=== PATIENT | female | born 1995 | race Caucasian/White ===

== ENCOUNTER 2023-05-13 07:22 | Inpatient (IN) | payer BC ==
[2023-05-13] MEDS ORDERED: Bupivacaine 0.25% HCL 30 ML VIAL ONE (08:00)
[2023-05-13] MEDS ORDERED: Misoprostol 200 MCG TAB PR PRN (09:19)
[2023-05-13] MEDS ORDERED: hydrALAZINE 20 MG/ML VIAL SLOW IVP PRN ×2 (09:19→22:43)
[2023-05-13] MEDS ORDERED: Ondansetron PF 4 MG/2 ML Vial IVP PRN ×2 (09:19→13:52)
[2023-05-13] MEDS ORDERED: Ibuprofen 800 MG TAB PO PRN (09:19)
[2023-05-13] MEDS ORDERED: Tranexamic Acid 1,000 MG/10 ML VIAL IVP PRN (09:19)
[2023-05-13] MEDS ORDERED: Promethazine HCl 25 MG/ML VIAL IM PRN ×2 (09:19→13:52)
[2023-05-13] MEDS ORDERED: Methylergonovine 0.2 MG/ML VIAL IM PRN (09:19)
[2023-05-13] MEDS ORDERED: Lidocaine 1% (PF) 30 ML VIAL SC PRN (09:19)
[2023-05-13] MEDS ORDERED: Diphenoxylate HCl/Atropine Tablet PO PRN ×2 (09:19)
[2023-05-13] MEDS ORDERED: Acetaminophen 500 MG TAB PO PRN (09:19)
[2023-05-13] MEDS ORDERED: Carboprost 250 MCG/ML AMP IM PRN (09:19)
[2023-05-13] MEDS ORDERED: Lactated Ringer's 1,000 ML IV SCH (09:30)
[2023-05-13] MEDS ORDERED: Oxytocin 30 units/NS 500 ML 500 ML IV SCH (09:30)
[2023-05-13 09:39] LABS: Hematocrit 38.9 % (34.9-44.5); Mean Corpuscular HGB CONC 33.4 g/dL (32.0-36.0); Mean Corpuscular Hemoglobin 29.1 pg (27.0-33.0); Mean Platelet Volume 12.4 fl (7.4-10.4); Platelet Count 139 10x3/uL (150-450); RBC Distribution Width 13.8 % (11.5-14.5); Red Blood Cell (RBC) Count 4.47 10x6/uL (3.90-5.03); White Blood Cell (WBC) Count 7.1 10x3/uL (3.5-10.5)
[2023-05-13 10:08] LABS: HBSAg Index 0.18 S/CO (0-0.99); Hep B Surf Ag - L&D Non-Reactive S/CO (NonReactive)
[2023-05-13 10:09] LABS: Syphilis Antibody Nonreactive (Nonreactive); Syphilis Antibody Index 0.03 S/CO (<1.00 Non-Reactive)
[2023-05-13] MEDS ORDERED: fentaNYL/Ropivacaine Epidural 100 ML ONE (13:34)
[2023-05-13] MEDS ORDERED: Acetaminophen 325 MG TAB PO PRN (13:52)
[2023-05-13] MEDS ORDERED: diphenhydrAMINE 50 MG/ML VIAL IVP PRN (13:52)
[2023-05-13] MEDS ORDERED: Lactated Ringer's 500 ML IV PRN (13:52)
[2023-05-13] MEDS ORDERED: Moisturizing Cream (Eucerin) 113 GM JAR TOP PRN (13:52)
[2023-05-13] MEDS ORDERED: ePHEDrine Sulfate 50 MG/10 ML VIAL SLOW IVP PRN (13:52)
[2023-05-13] MEDS ORDERED: Naloxone HCl 0.4 mg/ml Vial IVP PRN ×2 (13:52)
[2023-05-13] MEDS ORDERED: Communication Order-Pharmacy FS SCH (14:00)
[2023-05-13] MEDS ORDERED: fentaNYL 2 mcg/Ropivacaine 0.2% Epidural 100 ML CADD EPIDURAL SCH (14:00)
[2023-05-13 19:20] VITALS: BMI 33.4
[2023-05-13] MEDS ORDERED: Bisacodyl 10 MG SUPP PR PRN (22:43)
[2023-05-13] MEDS ORDERED: Milk Of Magnesia 30 ML UDCUP PO PRN (22:43)
[2023-05-13] MEDS ORDERED: Boostrix 0.5 ML (Tdap) VIAL (>/=7 yrs of age) IM ONE (22:43)
[2023-05-14] MEDS: Ibuprofen 800 MG TAB PO SCH ×3 (01:26→17:26)
[2023-05-14] MEDS ORDERED: Ibuprofen 800 MG TAB PO SCH (06:00)
[2023-05-14] MEDS ORDERED: Benzocaine-Menthol 82.5 ML CAN TOP PRN (08:35)
[2023-05-14] MEDS: Ferrous Sulfate 325 MG TAB PO SCH ×2 (08:45→15:58)
[2023-05-14] MEDS: Prenatal Vitamin 1 TAB PO SCH (08:46)
[2023-05-14] MEDS: Docusate 100 MG CAP PO SCH ×2 (08:46→21:17)
[2023-05-14] MEDS ORDERED: Zolpidem Tartrate 5 MG TAB PO PRN (14:29)
[2023-05-15] MEDS: Ibuprofen 800 MG TAB PO SCH ×2 (01:11→09:48)
[2023-05-15 01:27] LABS: #Monocytes 0.7 10x3/uL (0.0-1.1); #Neutrophils 6.6 10x3/uL (1.5-8.4); %Basophils 0.3 % (0.0-2.0); %Eosinophils 0.2 % (0.0-6.0); %Lymphocytes 28.1 % (18.0-47.0); %Monocytes 6.7 % (0.0-10.0); %Neutrophils 63.7 % (40.0-75.0); Hematocrit 33.5 % (34.9-44.5); Hemoglobin 10.9 g/dL (12.0-15.5); Mean Corpuscular HGB CONC 32.5 g/dL (32.0-36.0); Mean Corpuscular Hemoglobin 29.1 pg (27.0-33.0); Mean Corpuscular Volume 89.3 fl (81.6-98.3); Mean Platelet Volume 11.2 fl (7.4-10.4); Platelet Count 176 10x3/uL (150-450); Red Blood Cell (RBC) Count 3.75 10x6/uL (3.90-5.03); White Blood Cell (WBC) Count 10.3 10x3/uL (3.5-10.5)
[2023-05-15] MEDS: Ferrous Sulfate 325 MG TAB PO SCH (07:25)
[2023-05-15 07:38] VITALS: BP 119/78; TEMP 97.7
[2023-05-15] MEDS ORDERED: Pseudoephedrine HCl 30 MG TAB PO PRN (09:22)
[2023-05-15] MEDS ORDERED: Benzonatate 100 MG CAP PO PRN (09:22)
[2023-05-15] MEDS ORDERED: Oxymetazoline HCl 0.05% ( 15 ML ) NASAL PRN (09:31)
[2023-05-15] MEDS: Docusate 100 MG CAP PO SCH (09:46)
[2023-05-15] MEDS: Prenatal Vitamin 1 TAB PO SCH (09:47)
[2023-05-15] MEDS ORDERED: Fluticasone Propionate Nasal Spray 16 gm Bottle NASAL SCH (21:00)
== END 2023-05-15 16:00 | disposition home or self-care (01) | DRG 807 ==
LOC: CSHLD/OP 07:22 → CSHLD 07:46 → CSHPP 05-14 01:54
PROVIDERS: ADMIT Obstetrics & Gynecology; ATTEND Obstetrics & Gynecology
PROC: 10E0XZZ Delivery of Products of Conception, External Approach (ICD-10-PCS; principal; 2023-05-13)
PROC: 0KQM0ZZ Repair Perineum Muscle, Open Approach (ICD-10-PCS; 2023-05-13)
PROC: 0UQMXZZ Repair Vulva, External Approach (ICD-10-PCS; 2023-05-13)
PROC: 3E033XZ Introduction of Vasopressor into Peripheral Vein, Percutaneous Approach (ICD-10-PCS; 2023-05-13)
DX: O42.02 Full-term premature rupture of membranes, onset of labor within 24 hours of rupture (principal); Z37.0 Single live birth; A60.00 Herpesviral infection of urogenital system, unspecified; O99.214 Obesity complicating childbirth; Z3A.37 37 weeks gestation of pregnancy; O70.1 Second degree perineal laceration during delivery; O71.82 Other specified trauma to perineum and vulva
CPT/HCPCS: 36415; 51702; 85025; 85027; 86780; 86850; 86900; 86901; 87340; 99285; J2590; S0020